=== PATIENT | male | born 1950 | race Caucasian/White ===

== ENCOUNTER 2018-01-12 14:16 | Emergency (ER) | payer MEDICARE, OTHER ==
[~2018-01-12] VITALS: Ht 170.2 cm; Wt 90.7 kg
[2018-01-12] MEDS ORDERED: SODIUM CHLORIDE 0.9% 1000ML 1,000 ML IV STA (14:43)
[2018-01-12 15:06] LABS: BASOPHILS # (AUTO) 0.1 (0.0-0.1); BASOPHILS % 0.7 % (0.0-1.0); EOSINOPHILS # (AUTO) 0.3 (0.0-0.4); EOSINOPHILS % 3.7 % (0.0-6.0); HEMATOCRIT 49.1 % (38.2-49.6); HEMOGLOBIN 17.8 g/dL (14.0-18.0); LYMPHOCYTES # (AUTO) 1.3 (1.0-3.2); LYMPHOCYTES % 16.5 % (18.0-39.1); MEAN CORPUSCULAR HEMOGLOBIN 30.5 pg (28-32); MEAN CORPUSCULAR HGB CONC 36.3 g/dL (31-35); MEAN CORPUSCULAR VOLUME 84.1 fL (81-99); MONOCYTES # (AUTO) 0.6 (0.2-0.8); MONOCYTES % 7.2 % (4.4-11.3); NEUTROPHILS # (AUTO) 5.8 (2.1-6.9); NEUTROPHILS % 71.7 % (38.7-80.0); PLATELET COUNT 218 x10e3/uL (140-360); RED BLOOD COUNT 5.84 x10e6/uL (4.3-5.7); RED CELL DISTRIBUTION WIDTH 12.4 % (11.7-14.4)
[2018-01-12] MEDS ORDERED: ONDANSETRON HCL INJ 2 MG/ML VIAL IV ONE (15:15)
[2018-01-12] MEDS ORDERED: KETOROLAC TROMETHAMINE 30 MG/ML VIAL ONE (15:20)
[2018-01-12] MEDS ORDERED: KETOROLAC TROMETHAMINE 30 MG/ML VIAL IV STA (15:20)
[2018-01-12 15:29] LABS: ALANINE AMINOTRANSFERASE 23 IU/L (0-55); ALBUMIN 4.2 g/dL (3.5-5.0); ALBUMIN/GLOBULIN RATIO 1.6 (0.8-2.0); ALKALINE PHOSPHATASE 57 IU/L (40-150); AMYLASE 64 U/L (25-125); ANION GAP 11.7 mmol/L (8-16); BLOOD UREA NITROGEN 16 mg/dL (7-26); BUN/CREATININE RATIO 14 (6-25); CALCIUM 9.4 mg/dL (8.4-10.2); CARBON DIOXIDE 26 mmol/L (22-29); CHLORIDE 103 mmol/L (98-107); CREATININE, SERUM 1.15 mg/dL (0.72-1.25); EST GLOMERULAR FILTRATION RATE > 60 ML/MIN (60-); GLUCOSE 165 mg/dL (74-118); LIPASE 35 U/L (8-78); POTASSIUM 3.7 mmol/L (3.5-5.1); SODIUM 137 mmol/L (136-145)
[2018-01-12] MEDS ORDERED: MORPHINE SULFATE 2 MG/ML SYR IV ONE (15:30)
[2018-01-12] MEDS ORDERED: MORPHINE SULFATE INJ 4 MG/ML INJ IV ONE (16:30)
[2018-01-12 16:56] LABS: BILIRUBIN,URINE NEGATIVE (NEGATIVE); CLARITY,URINE CLEAR (CLEAR); COLOR,URINE YELLOW (YELLOW); KETONES,URINE NEGATIVE (NEGATIVE); LEUKOCYTE ESTERASE ,URINE NEGATIVE (NEGATIVE); NITRITE,URINE NEGATIVE (NEGATIVE); PROTEIN,URINE DIPSTICK NEGATIVE (NEGATIVE); URINE UROBILINOGEN 0.2 mg/dL (0.2 - 1)
[2018-01-12 17:03] LABS: AMPHETAMINES SCREEN,URINE NEGATIVE (NEGATIVE); BENZODIAZEPINES SCREEN,URINE NEGATIVE (NEGATIVE); PHENCYCLIDINE SCREEN,URINE NEGATIVE (NEGATIVE)
[2018-01-12 17:11] LABS: CALCIUM OXALATE CRYSTALS,UR FEW (FEW); RBC,URINE 21-50 /HPF (0-5)
[2018-01-12 17:12] LABS: MUCUS,URINE MODERATE (RARE)
--- NOTE | 2018-01-12 17:15 | Diagnostic Imaging Report ---
EXAMINATION: CT of the abdomen and pelvis with contrast. TECHNIQUE: Spiral CT images of the abdomen and pelvis were performed from the lung bases to the lesser trochanters after the intravenous administration of 100 cc of Isovue 370 and the oral administration of water. Coronal and sagittal reformatted images were obtained. COMPARISON: None. CLINICAL HISTORY:Abdominal pain, right lower abdominal pain DISCUSSION: ABDOMEN/PELVIS: LOWER THORAX:Linear subsegmental atelectasis versus scarring in the lingula. HEPATOBILIARY: No focal hepatic lesions. No intra or extrahepatic biliary ductal dilation. GALLBLADDER: Cholecystectomy clips. SPLEEN: Mild splenomegaly, measuring 14.2 cm in AP diameter. PANCREAS: No focal masses or ductal dilatation. ADRENALS: No adrenal nodules. KIDNEYS/URETERS: Right: Punctate calculus in the distal right ureter just proximal to the UVJ (series 2, image 78 and sagittal image 61), which results in a slightly delayed nephrogram, mild right pelviectasis, mild right perinephric and periureteral stranding. 4 mm nonobstructing calculus in the interpolar region (series 2, image 31 and coronal image 79). No solid enhancing masses. Left: No renal or ureteral calculi, hydronephrosis or obstruction. Minimal perinephric stranding. No solid enhancing masses. PELVIC ORGANS/BLADDER: Bladder is unremarkable, without focal lesions. Dystrophic calcifications in the prostate. PERITONEUM/RETROPERITONEUM: No free air or fluid. LYMPH NODES: No intra-abdominal, retroperitoneal, pelvic or inguinal lymphadenopathy. VESSELS: The celiac trunk,superior and inferior mesenteric and bilateral renal arteries are patent The portal, superior mesenteric and splenic veins are patent. GI TRACT: No bowel dilation or evidence of obstruction. No pericolonic inflammatory changes. Appendix is identified and normal in caliber. High density material in the dependent portion of the stomach fundus likely representing ingested medication. BONES AND SOFT TISSUE: No aggressive lytic lesions. Degenerative disc changes in the lumbosacral spine, predominantly at L3-L4, L4-L5 and L5-S1. Fat-containing umbilical hernias. IMPRESSION: 1.Punctate calculus in the distal right ureter just proximal to the UVJ , which results in a slightly delayed nephrogram, mild right pelviectasis, mild right perinephric and periureteral stranding. 2. 4 mm nonobstructing calculus in the right interpolar region. 3. Mild splenomegaly. Signed by: Dr. Michele Merlos M.D. on 01/12/2018 5:11 PM
[2018-01-12] MEDS ORDERED: HYDROMORPHONE 2MG/ML 2 MG/ML ML IV ONE (17:30)
[2018-01-12 18:29] VITALS: BP 147/84
[2018-01-12] MEDS ORDERED: SODIUM CHLORIDE 0.9% 50ML 50 ML ONE (22:47)
[2018-01-12] MEDS ORDERED: IOPAMIDOL 370 MG/ML 200 ML INFUS..BTL INJ ONE (22:48)
== END 2018-01-12 18:40 | disposition home or self-care (01) ==
LOC: ER 14:16
DX: R10.31 Right lower quadrant pain (principal); R11.0 Nausea; R19.7 Diarrhea, unspecified; N20.0 Calculus of kidney
CPT/HCPCS: 36415; 74177; 80053; 80307; 81001; 82150; 83690; 85025; 99284; J1170; J1885; J2270; J2405; J7030; Q9967

== ENCOUNTER 2018-12-25 01:29 | Inpatient (IN) | payer MEDICARE ==
[~2018-12-25] VITALS: Ht 170.2 cm; Wt 89.4 kg
--- OUTSIDE RECORDS SUMMARY | 2018-12-25 01:32 | XMS REPORT ---
Author Author [facility] Address Unknown Phone Unavailable Care Team Providers Care Body Design Checker Name Role Phone Joao LAGOS Unavailable Unavailable Problems This patient has no known problems. Allergies, Adverse Reactions, Alerts This patient has no known allergies or adverse reactions. Medications This patient has no known medications. Results Test Description Test Time Test Comments Text Results Atomic Results Result Comments CT ABDOMEN/PELVIS W 2018-01-12 17:04:00 [facility] [address] [address] Patient Name: RANDALL MCCLURE MR #: [id number] : 1950 Age/Sex: 67/M Req #: [id number] Adm Physician: Ordered by: HARSHA CHRISTIANSON IMPOSER Report #: [id number] Location: ER Room/Bed: Procedure: [id number] CT/CT ABDOMEN/PELVIS W Exam Date: Exam Time: REPORT STATUS: Signed EXAMINATION: CT of the abdomen and pelvis with contrast. TECHNIQ UE: Spiral CT images of the abdomen and pelvis were performed from the lung bases to the lesser trochanters after the intravenous administration of 100 cc of Isovue 370 and the oral administration of water. Coronal and sagittal reformatted images were obtained. COMPARISON: None. CLINICAL HISTORY:Abdominal pain, right lower abdominal pain DISCUSSION: ABDOMEN/PELVIS: LOWER THORAX:Linear subsegmental atelectasis versus scarring in the lingula. HEPATOBILIARY: No focal hepatic lesions. No intra or extrahepatic biliary ductal dilation. GALLBLADDER: Cholecystectomy clips. SPLEEN: Mild splenomegaly, measuring 14.2 cm in AP diameter. PANCREAS: No focal masses or ductal dilatation. ADRENALS: No adrenal nodules. KIDNEYS/URETERS: Right: Punctate calculus in the distal right ureter just proximal to the UVJ (series 2, image 78 and sagittal image 61), which results in a slightly delayed nephrogram, mild right pelviectasis, mild right perinephric and periureteral stranding. 4 mm nonobstructing calculus in the interpolar region (series 2, image 31 and coronal image 79). No solid enhancing masses. Left: No renal or ureteral calculi, hydronephrosis or obstruction. Minimal perinephric stranding. No solid enhancing masses. PELVIC ORGANS/BLADDER: Bladder is unremarkable, without focal lesions. Dystrophic calcifications in the prostate. PERITONEUM/RETROPERITONEUM: No free air or fluid. LYMPH NODES: No intra-abdominal, retroperitoneal, pelvic or inguinal lymphadenopathy. VESSELS: The celiac trunk,superior and inferior mesenteric and bilateral renal arteries are patent The portal, superior mesenteric and splenic veins are patent. GI TRACT: No bowel dilation or evidence of obstruction. No pericolonic inflammatory changes. Appendix is identified and normal in caliber. High density material in the dependent portion of the stomach fundus likely representing ingested medicatio n. BONES AND SOFT TISSUE: No aggressive lytic lesions. Degenerative disc changes in the lumbosacral spine, predominantly at L3-L4, L4-L5 and L5-S1. Fat-containing umbilical hernias. IMPRESSION: 1.Punctate calculus in the distal right ureter just proximal to the UVJ , which results in a slightly delayed nephrogram, mild right pelviectasis, mild right perinephric and periureteral stranding. 2. 4 mm nonobstructing calculus in the right interpolar region. 3. Mild splenomegaly. Signed by: Dr. Nate Merlos M.D. on 01/12/2018 5:11 PM Dictated By: NATE MERLOS MD 10 Transcribed By: ELAINE on 01/12/181710 COPY TO: HARSHA CHRISTIANSON NP
[2018-12-25] MEDS ORDERED: ONDANSETRON HCL INJ 2MG/ML 2ML 2 MG/ML VIAL IV STA (01:38)
[2018-12-25] MEDS ORDERED: PANTOPRAZOLE 40 MG 10ML VIAL IV STA (01:38)
[2018-12-25] MEDS ORDERED: SODIUM CHLORIDE 0.9% 1000ML 1,000 ML IV ONE (01:45)
[2018-12-25 01:56] LABS: BASOPHILS % 0.4 % (0.0-1.0); HEMOGLOBIN 18.7 g/dL (14.0-18.0); LYMPHOCYTES # (AUTO) 1.3 (1.0-3.2); LYMPHOCYTES % 13.5 % (18.0-39.1); MEAN CORPUSCULAR HEMOGLOBIN 31.1 pg (28-32); MEAN CORPUSCULAR VOLUME 86.4 fL (81-99); MONOCYTES # (AUTO) 0.4 (0.2-0.8); MONOCYTES % 3.8 % (4.4-11.3); NEUTROPHILS # (AUTO) 7.6 (2.1-6.9); NEUTROPHILS % 81.9 % (38.7-80.0); PLATELET COUNT 220 x10e3/uL (140-360); RED BLOOD COUNT 6.02 x10e6/uL (4.3-5.7); RED CELL DISTRIBUTION WIDTH 12.4 % (11.7-14.4)
[2018-12-25 02:11] LABS: AMYLASE 56 U/L (25-125); LIPASE 21 U/L (8-78)
--- NOTE | 2018-12-25 02:27 | Diagnostic Imaging Report ---
EXAMINATION: ABDOMEN ACUTE SERIES W/PA CXR INDICATION: Nausea. COMPARISON: CT abdomen/pelvis 01/12/2018. FINDINGS: CXR: TUBES and LINES: None. LUNGS: Lungs are well inflated. Patchy bibasilar opacities, likely atelectasis. There is no evidence of lobar pneumonia or pulmonary edema. PLEURA: No pleural effusion or pneumothorax. HEART AND MEDIASTINUM: The cardiomediastinal silhouette is unremarkable. BONES AND SOFT TISSUES: No acute osseous lesion. Soft tissues are unremarkable. ABDOMEN: There are mildly dilated small bowel loops, measuring up to 4.2 cm. Some air is seen within a nondistended colon. There are air-fluid levels on upright view. There is no free intraperitoneal air. The bony structures are unremarkable. Cholecystectomy clips in the right upper quadrant. IMPRESSION: Findings suggestive of partial small bowel obstruction. No evidence of free intraperitoneal air. Signed by: Dr. Anel Chao MD on 12/25/2018 2:24 AM
[2018-12-25 02:29] LABS: BILIRUBIN,URINE NEGATIVE (NEGATIVE); CLARITY,URINE CLEAR (CLEAR); COLOR,URINE YELLOW (YELLOW); LEUKOCYTE ESTERASE ,URINE NEGATIVE (NEGATIVE); NITRITE,URINE NEGATIVE (NEGATIVE); PROTEIN,URINE DIPSTICK NEGATIVE (NEGATIVE); URINE UROBILINOGEN 0.2 mg/dL (0.2 - 1)
[2018-12-25] MEDS ORDERED: PROMETHAZINE HCL (IM) 25 MG/ML VIAL IM ONE (02:30)
[2018-12-25 02:38] LABS: KETONES,URINE 1+ (NEGATIVE)
[2018-12-25 02:43] LABS: ALANINE AMINOTRANSFERASE 28 IU/L (0-55); ALBUMIN 4.2 g/dL (3.5-5.0); ALBUMIN/GLOBULIN RATIO 1.6 (0.8-2.0); ALKALINE PHOSPHATASE 58 IU/L (40-150); ANION GAP 14.7 mmol/L (8-16); BLOOD UREA NITROGEN 11 mg/dL (7-26); BUN/CREATININE RATIO 12 (6-25); CALCIUM 9.7 mg/dL (8.4-10.2); CARBON DIOXIDE 24 mmol/L (22-29); CHLORIDE 102 mmol/L (98-107); CREATINE KINASE 286 IU/L (30-200); CREATININE, SERUM 0.89 mg/dL (0.72-1.25); EST GLOMERULAR FILTRATION RATE > 60 ML/MIN (60-); GLUCOSE 138 mg/dL (74-118); POTASSIUM 4.7 mmol/L (3.5-5.1); SODIUM 136 mmol/L (136-145)
[2018-12-25] MEDS ORDERED: ONDANSETRON HCL INJ 2MG/ML 2ML 2 MG/ML VIAL IV PRN (03:15)
[2018-12-25] MEDS ORDERED: HYDROMORPHONE 1MG/1ML INJ IV PRN (03:15)
[2018-12-25] MEDS ORDERED: BENZOCAINE/TETRACAINE/BUTAMBEN AERO SPRAY 56 GM CAN TOP ONE (03:15)
[2018-12-25 03:19] LABS: BACTERIA,URINE FEW /HPF; EPITHELIAL CELLS,URINE FEW /LPF; RBC,URINE 0-5 /HPF (0-5); WBC,URINE (MAN) 0-5 /HPF (0-5)
--- NOTE | 2018-12-25 03:40 | NUR ---
14F NGT PLACED TO R NARE, PLACEMENT VERIFIED VIA AIR BOLUS AND 2 RNS, PLACED TO LIWS MIN YELLOW DRAINAGE NOTED TO JOSE
[2018-12-25] MEDS: SODIUM CHLORIDE 0.9% 1000ML 1,000 ML IV SCH ×3 (03:46→23:47)
--- NOTE | 2018-12-25 07:00 | NUR ---
Bedside report received from FELIPE Crews. Pt sitting up comfortably in bed. RR even and unlabored. NAD noted. Vital stable. Pt denies any pain or discomfort at the present time. Call light in reach. Spouse at bedside, Call light in reach. Will continue to monitor.
[2018-12-25] MEDS ORDERED: LISINOPRIL10 MG PO (07:05)
[2018-12-25] MEDS ORDERED: PANTOPRAZOLE 40 MG 10ML VIAL IV SCH (09:00)
--- NOTE | 2018-12-25 09:43 | NUR ---
Pt resting comfortably. NAD noted. Will continue to monitor.
--- NOTE | 2018-12-25 09:44 | Diagnostic Imaging Report ---
Abdomen, 1 view. History: Small bowel obstruction. Comparison: Abdominal series from earlier today. Findings: There is decreased small bowel dilatation. Nasogastric tube is present terminating in the region of the duodenum. Cholecystectomy clips are present. There are no masses or abnormal calcifications. The osseous structures are intact. IMPRESSION: Improvement in small bowel obstruction. Signed by: John Granados on 12/25/2018 9:41 AM
[2018-12-25 16:00] VITALS: BP 187/103
[2018-12-25 16:55] VITALS: BP 187/103
[2018-12-25 17:00] VITALS: BP 187/103
--- NOTE | 2018-12-25 17:07 | NUR ---
PATIENT ARRIVED ON THE UNIT AT 1600 PER BED FROM THE ER. PATIENT IS AWAKE, ALERT, AND IN STABLE CONDITION WITH NO S/S OF RESPIRATORY DISTRESS. PATIENT DENIES PAIN. IV NOTED TO LEFT HAND 20G WITH IV FLUIDS INFUSING. NG APPLIED TO RIGHT NARE; LOW INTERMITTENT WALL SUCTION TO BE APPLIED. SKINS INTACT WITH HEALING SCABS NOTED TO RIGHT FOREARM. PRESENT IN ROOM. CALL LIGHT IS WITHIN REACH, PATIENT INSTRUCTED TO CALL FOR ASSISTANCE NEEDED.
[2018-12-25 17:32] VITALS: BP 172/82
[2018-12-25] MEDS: HYDRALAZINE HCL 20 MG/ML VIAL IV PRN (17:42)
[2018-12-25] MEDS: PIPER-TAZ 3.375 GM 50 ML IV SCH (18:17)
--- NOTE | 2018-12-25 19:06 | NUR ---
PATIENT IS IN STABLE CONDITION WITH NO S/S OF RESPIRATORY DISTRESS-NO PAIN VOICED. IV FLUIDS INFUSING. NG CONNECTED TO LIWS. CALL LIGHT IS WITHIN REACH, PATIENT INSTRUCTED TO CALL FOR ASSISTANCE NEEDED. REPORT GIVEN TO ONCOMING NURSE.
[2018-12-25 20:00] VITALS: BP 156/83
[2018-12-25 20:40] VITALS: BP 156/83
--- NOTE | 2018-12-25 21:00 | NUR ---
PATIENT RESTING IN BED IN STABLE CONDITION, NO SIGNS OF RESPIRATORY DISTRESS NOTED. NG TUBE INTACT AND DRAINING DARK YELLOW FLUID AT LOW INTERMITTENT SUCTION. PATIENT VOICES NO PAIN AT THIS TIME, BED IS IN LOWEST POSITION POSSIBLE, SIDE RAILS ARE UP, CALL LIGHT IS WITHIN EASIEST REACH, WILL CONTINUE TO MONITOR.
[2018-12-26] VITALS (8 sets, daily range): BP systolic 145–179; BP diastolic 79–88
[2018-12-26] MEDS: PIPER-TAZ 3.375 GM 50 ML IV SCH ×4 (00:09→17:50)
--- NOTE | 2018-12-26 00:24 | History and Physical ---
CHIEF COMPLAINT: A 68-year-old male, who comes in with abdominal pain. HISTORY OF PRESENT ILLNESS: This is a 68-year-old gentleman with a history of hypertension, was in usual state of health until about 2 days prior to admission. The patient started to have unusual amount of abdominal pain. The patient did not mind it, it went along, started eating responsible and also decreasing his food intake too more for his soft mechanical diet. This morning, the patient woke up and was noted to have excessive amount of pain, work up the and drove to the emergency room, was found to have small bowel obstruction. NG tube introduced. The patient was seen in the morning with NG tube with low bowel sounds and after in the evening, the patient's bowel sounds are better. The NG tube has been clamped. The patient is admitted for small bowel obstruction. PAST MEDICAL HISTORY: History of hypertension. PAST SURGICAL HISTORY: History of cholecystectomy. ALLERGIES: THE PATIENT HAS NO FOOD ALLERGIES. SOCIAL HISTORY: No EtOH. No IV drug abuse. Lives with . happily. No smoking history either. REVIEW OF SYSTEMS: Negative for chest pain. No shortness of breath. Positive for nausea. No vomiting. No diarrhea. No constipation. No rectal bleeding. Abdominal pain positive, no diplopia. No blurry vision and no headaches. PHYSICAL EXAMINATION: GENERAL: The patient is alert and oriented x3. VITAL SIGNS: Temperature is 98.5, pulse 74, respirations of 18, blood pressure is 146/85. HEENT: Normocephalic, atraumatic. Pupils reactive to light and accommodation. The patient has an NG tube in. CVS: S1 and S2 normal. Regular rate and rhythm. ABDOMEN: Sluggish bowel sounds. EXTREMITIES: No clubbing, no cyanosis, no edema. LABORATORY VALUES: The patient's white count is 9.3, hemoglobin of 18.7, hematocrit 52, neutrophil count was 81.9. Chemistries; sodium 136, potassium 4.7, BUN of 11, creatinine 0.89. Amylase and lipase were normal. Urine was essentially normal. IMAGING STUDIES: Initial acute abdominal series showed findings suggestive of partial small bowel obstruction. No evidence of free intraperitoneal air. ASSESSMENT: Small-bowel obstruction. NG tube placement. The patient is already feeling better. NG tube has been clamped. Dr. Lou has been consulted. We will start the patient on some Zosyn 3.375 mg on account of his high neutrophil count and we will continue to monitor the patient. SCDs will be done. Further recommendation on clinical course. Discharge planning will be done soon depending on progression of the process. MD PATRIA Garcia/MODL /[id number]
[2018-12-26] MEDS: HYDRALAZINE HCL 20 MG/ML VIAL IV PRN ×2 (01:20→11:01)
[2018-12-26 05:40] LABS: BASOPHILS % 0.3 % (0.0-1.0); EOSINOPHILS # (AUTO) 0.1 (0.0-0.4); EOSINOPHILS % 0.4 % (0.0-6.0); HEMOGLOBIN 17.8 g/dL (14.0-18.0); LYMPHOCYTES # (AUTO) 1.4 (1.0-3.2); MEAN CORPUSCULAR HGB CONC 34.2 g/dL (31-35); MEAN CORPUSCULAR VOLUME 87.7 fL (81-99); MONOCYTES # (AUTO) 1.1 (0.2-0.8); MONOCYTES % 9.1 % (4.4-11.3); NEUTROPHILS # (AUTO) 9.9 (2.1-6.9); NEUTROPHILS % 78.6 % (38.7-80.0); PLATELET COUNT 203 x10e3/uL (140-360); RED BLOOD COUNT 5.93 x10e6/uL (4.3-5.7); RED CELL DISTRIBUTION WIDTH 12.8 % (11.7-14.4)
[2018-12-26 06:00] LABS: ALANINE AMINOTRANSFERASE 22 IU/L (0-55); ALBUMIN 3.8 g/dL (3.5-5.0); ALBUMIN/GLOBULIN RATIO 1.7 (0.8-2.0); ALKALINE PHOSPHATASE 52 IU/L (40-150); ANION GAP 13.8 mmol/L (8-16); BLOOD UREA NITROGEN 10 mg/dL (7-26); BUN/CREATININE RATIO 12 (6-25); CALCIUM 8.8 mg/dL (8.4-10.2); CARBON DIOXIDE 22 mmol/L (22-29); CHLORIDE 105 mmol/L (98-107); CREATININE, SERUM 0.83 mg/dL (0.72-1.25); EST GLOMERULAR FILTRATION RATE > 60 ML/MIN (60-); GLUCOSE 84 mg/dL (74-118); POTASSIUM 3.8 mmol/L (3.5-5.1); SODIUM 137 mmol/L (136-145)
[2018-12-26] MEDS ORDERED: KETOROLAC TROMETHAMINE 30 MG/ML VIAL IV PRN (06:45)
--- NOTE | 2018-12-26 06:45 | NUR ---
BY ORDERS OF DR. PEÑALOZA, NG TUBE WAS CLAMPED AND WILL BE FOR 2 HOURS, WILL INFORM DAY NURSE.
--- NOTE | 2018-12-26 07:00 | NUR ---
RECEIVED AM REPORT FROM NURSE AND ROUNDS DONE. PT IS ALERT SITTING UP IN BED, NO S/S OF DISTRESS. NGT IS IN PLACE AND CLAMPED, PT IS TOLERATING CLEAR LIQUID DIET. CALL LIGHT WITHIN REACH AND INSTRUCTED PT TO CALL NURSE FOR HELP
[2018-12-26] MEDS: PANTOPRAZOLE 40 MG 10ML VIAL IV SCH ×2 (08:51→17:50)
--- NOTE | 2018-12-26 08:51 | NUR ---
LEFT NGT WAS REMOVED PER DR. PEÑALOZA'S ORDER. PT STATES THAT HE HAS NO NAUSEA OR STOMACH PAIN, BOWEL SOUNDS ARE ACTIVE IN ALL FOUR QUADRANTS. PT TOLERATED REMOVAL WELL, TUBE WAS INTACT AFTER REMOVAL.
--- NOTE | 2018-12-26 08:53 | Diagnostic Imaging Report ---
Exam: KUB - 2 views Indication: Nausea Comparison: KUB of 12/25/2018 Findings: NG tube is postpyloric, with tip and side-port in the distal duodenum. Nonobstructive bowel gas pattern. No free air. Status post cholecystectomy. Mild degenerative changes of the visualized spine and both hip joints. Mild patchy opacities at the partially visualized lung bases, likely subsegmental atelectasis. Impression: NG tube terminates in the distal duodenum. Nonobstructive bowel gas pattern. No free air. Signed by: Cisco Hammer MD on 12/26/2018 8:49 AM
--- NOTE | 2018-12-26 10:11 | Progress Note ---
DATE: SUBJECTIVE: The patient is here for small bowel obstruction. NG tube to suction, intermittent suction at this time. No chest pain. No shortness of breath. The patient complains of a headache with some sinus drainage and from the tube in his nose. Bowel sounds are heard. Bowels are moving. Has been passing gas. No bowel movements yet. No chest pain and no shortness of breath. OBJECTIVE: Vital Signs: Temperature is 97, pulse of 105, respirations of 20, and blood pressure is 156/81. HEENT: Normocephalic and atraumatic. Pupils are reactive to light and accommodation. CVS: S1 and S2 normal. Regular rate and rhythm. ABDOMEN: Nontender and nondistended. Bowel sounds are positive. EXTREMITIES: No clubbing. No cyanosis. No edema. LABORATORY VALUES: White count is 12,000, hemoglobin of 17.8, hematocrit 52.0, and neutrophil count was 81 yesterday, it is normal today. Chemistry; sodium is 137, potassium 3.8, BUN of 10, and creatinine 0.83. ASSESSMENT: A 68-year-old gentleman with hypertension, comes in with one small bowel obstruction. NG tube is in, however, we will go ahead and clamp it and possibly remove it today. Start on clear liquid diet. The patient also is on Zosyn at this time for elevated neutrophil count. We will continue to monitor the patient's SCD and GI prophylaxis. Further recommendation per clinical course. MD PATRIA Garcia/GUERREROL /[id number]
[2018-12-26] MEDS: SODIUM CHLORIDE 0.9% 1000ML 1,000 ML IV SCH ×2 (11:14→12:51)
--- NOTE | 2018-12-26 21:00 | NUR ---
PATIENT RESTING IN BED AOX4, NO SIGNS OF RESPIRATORY DISTRESS NOTED. FAMILY MEMBER AT BEDSIDE AND PATIENT VOICED THAT HE FEELS A LOT BETTER SINCE NG TUBE WAS REMOVED AND UPGRADED TO FULL LIQUID DIET. PATIENT ALSO VOICES NO PAIN AT THIS TIME, BED IS IN LOWEST POSITION POSSIBLE, SIDE RAILS ARE UP, CALL LIGHT IS WITHIN EASIEST REACH, WILL CONTINUE TO MONITOR.
[2018-12-27] VITALS: BP 132/71
[2018-12-27] MEDS: PIPER-TAZ 3.375 GM 50 ML IV SCH ×2 (00:02→05:34)
[2018-12-27] MEDS: SODIUM CHLORIDE 0.9% 1000ML 1,000 ML IV SCH (02:05)
[2018-12-27 04:00] VITALS: BP 133/71
--- NOTE | 2018-12-27 07:00 | NUR ---
RECEIVED AM REPORT AND ROUNDS DONE. PT IS ALERT AND UP OOB, NO S/S OF DISTRESS. INSTRUCTED PT TO USE THE CALL LIGHT TO CALL NURSE FOR HELP
== END 2018-12-27 08:19 | disposition home or self-care (01) | DRG 390 ==
LOC: ER 01:29 → ERHOLD 03:17 → MED/SURG3 15:57
PROVIDERS: ADMIT Family Medicine; ATTEND Family Medicine
DX: K56.600 Partial intestinal obstruction, unspecified as to cause (principal); I10 Essential (primary) hypertension; K52.9 Noninfective gastroenteritis and colitis, unspecified
CPT/HCPCS: 36415; 74018; 74019; 74022; 80053; 81001; 82150; 82550; 82553; 83690; 83735; 84484; 85025; 93005; 96372; 96374; 99284; J0360; J1170; J1885; J2543; J2550; J7030